=== PATIENT | male | born 1945 | race Caucasian/White ===

== ENCOUNTER 2017-08-23 11:29 | Outpatient (CLI) | payer MEDICARE, BC, SELFPAY ==
[2017-08-23] VITALS (11 sets, daily range): BP systolic 126–148; BP diastolic 62–87; PULSE 60–73; RESP 16–18; TEMP 36.4; O2SAT 95–100
--- NOTE | 2017-08-23 11:30 | DI.RAD.S_ITS ---
PROCEDURE: PAIN L/SI FACET INJ/BLK 1STL INDICATIONS: Post Lami Syndrome FINDINGS: Fluoroscopic spot filming was performed to verify placement of spinal needles at the bilateral L2-L3 and L3-4 level(s), as labeled on the films. Appropriate location(s) of the needle tip(s) was confirmed by injection of iodinated contrast. Dictated by: Avinash Fair M.D. on 08/23/2017 at 17:17 Approved by: Avinash Fair M.D. on 08/23/2017 at 17:19
--- NOTE | 2017-08-23 12:05 | PM.PROC.1 ---
Procedures Date/Time Date of procedure: 08/23/17 Time of procedure: 12:05 General Procedure description: PREOP DIAGNOSIS 1. FACET ARTHROPATHY, 2. AXIAL LBP, 3. MULTILEVEL DDD, POST OP DIAGNOSIS 1. FACET ARTHROPATHY, 2. AXIAL LBP, 3. MULTILEVEL DDD, PROCEDURES 1. FLUORSCOPICALLY GUIDED CONTRAST CONTROLLED FACET JOINT INJECTIONS BILATERAL L2/3, L3/4 SURGEON: Jonas Lundy DO INDICATIONS: Erics ireferred by is referred for treatment of Axial LBP FINDINGS Multilevel Facet Arthropathy with Clinically significant axial LBP DESCRIPTION OF PROCEDURE Fluoroscopically guided, contrast-controlled bilateral L2/3, L3/4 facet joint injections. Following denial of allergy and review of potential side effects and complications, including, but not necessarily limited to, infection, allergic reaction, local tissue breakdown, stroke, temporary or permanent nerve injury, paralysis, and possible , the patient indicated that the patient understood and agreed to proceed. An informed consent document was signed by the patient, witnessed by a nurse, and placed in the patient's chart. Additionally, other treatment options including medications, modalities, and physical therapy were reviewed with the patient. Per the patient request, IV conscious sedation was administered via 3mg of Versed to patient comfort. The patient's vital signs were monitored throughout the procedure by both the nurse and the physician without significant fluctuation. The patient remained conversant throughout the procedure. In the prone position, following sterile prep and drape of the lumbar region, the posterior aspect of the L2/3, L3/4 facet joints were identified fluoroscopically. The skin was anesthetized via a 25-gauge 1.5-inch needle with 1% lidocaine solution into the corresponding facet joints. At this point, a 22-gauge 3.5-inch spinal needle was atraumatically introduced and advanced under fluoroscopic guidance into the corresponding facet joints. Following negative aspiration, injections of approximately 0.2-cc of Isovue 200 confirmed interarticular placement without vascular uptake. The identical procedure was then performed at the L2/3, L3/4 facet joints on the left. Radiological data, including multiple fluoroscopic views of the lumbosacral spine, reveal a spinal needle at the L2/3, L3/4 facet joints bilaterally. Subsequent views show flow of contrast material both superiorly and inferiorly within the joint space without vascular or intrathecal uptake. At this point, a total of 0.5 cc including a mixture of 0.25cc Marcaine and 0.25cc betamethasone was injected without complication into each of the corresponding facet joints. The patient was then transferred to the recovery area where they were observed for an appropriate period of time after the injection. The patient reported a VAS score of 7 prior to the procedure and a post-procedure VAS of 0. Total Fluoroscopy Time: 26 seconds Total Conscious Sedation Time: 24min POST OP INSTRUCTIONS The patient was provided a Pain Log to continue to record their response to the target-specific procedure prior to follow-up visit with their referring physician. Additionally, specific post-injection care instructions and a contact number to our office were provided if concerns arise regarding possible complications associated with the procedure are suspected. Jonas Lundy DO Complications: none
[2017-08-23] MEDS: MIDAZOLAM 5 MG/5 ML VIAL IV (12:16)
[2017-08-23] MEDS: LIDOCAINE 1% 20 ML INJ 10 ML INJ (12:23)
[2017-08-23] MEDS: BETAMETHASONE 30 MG/5 ML MDV 12 MG INJ (12:23)
[2017-08-23] MEDS: BUPIVACAINE 0.25% (PF) 30 ML VIAL 5 ML INJ (12:23)
== END 2017-08-23 13:01 ==
PROVIDERS: PCP Family Medicine; Visit Provider Physical Medicine & Rehabilitation
DX: M47.26 Other spondylosis with radiculopathy, lumbar region (principal); M51.36 Other intervertebral disc degeneration, lumbar region; M96.1 Postlaminectomy syndrome, not elsewhere classified
CPT/HCPCS: 64493; 64494; 99152; J0702; J2250

== ENCOUNTER 2017-10-19 13:04 | Outpatient (CLI) | payer MEDICARE, BC, SELFPAY ==
[2017-10-19] VITALS (10 sets, daily range): BP systolic 119–142; BP diastolic 69–92; PULSE 59–65; RESP 16–18; TEMP 36.1; O2SAT 96–100
--- NOTE | 2017-10-19 13:08 | DI.RAD.S_ITS ---
PROCEDURE: PAIN L/SI FACET INJ/BLK 1STL INDICATIONS: L3-L4-L5 MEDIAL BRANCH BLOCK BILATERAL FINDINGS: Fluoroscopic spot filming was performed to verify placement of spinal needles at the L3, L4 and L5 level(s), as labeled on the films. Appropriate location(s) of the needle tip(s) was confirmed by injection of iodinated contrast. IMPRESSION: Intraoperative imaging for needle injections at 3 levels in the lumbar spine Dictated by: Javi Hathaway M.D. on 10/19/2017 at 16:49 Approved by: Javi Hathaway M.D. on 10/19/2017 at 16:50
[2017-10-19] MEDS: MIDAZOLAM 5 MG/5 ML VIAL IV (14:07)
--- NOTE | 2017-10-19 14:12 | P.PCN_ITS ---
Procedures Date/Time Date of procedure: 10/19/17 Time of procedure: 14:08 General Procedure description: POST OP DIAGNOSIS 1. FACET ARTHROPATHY PROCEDURES 1. BILATERAL L2, L3 AND L4 MB BLOCKS PHYSICIAN: Jonas Lundy DO INDICATIONS [place] is referred by Dr. Hpokins for treatment of Bilateral Axial LBP. DESCRIPTION OF PROCEDURE Fluoroscopically guided, contrast-controlled bilateral L2, L3 AND L4 medial branch blocks with 0.5cc of 0.5% Marcaine. Following denial of allergy and review of potential side effects and complications, including, but not necessarily limited to, infection, allergic reaction, local tissue breakdown, nerve injury, paralysis, stroke and possible , the patient indicated that the patient understood and agreed to proceed. An informed consent document was signed by the patient, witnessed by a nurse, and placed in the patient's chart. After review of previous anaesthesic history and IV conscious sedation the patient was deemed safe to proceed with todays procedure with IV conscious sedation as ASA class II designation. Safety time-out was performed to confirm patient ID, procedure to be performed and site of procedure. IV sedation was accomplished with a combination of 3mg of Versed was administered by the RN after DO order, titrated to patient comfort during the course of the procedure while the patient remained responsive to all verbal commands In the prone position, following sterile prep and drape of the lumbar region, the right L2, L3 AND L4 anatomical location of the medial branch of the dorsal ramus was identified fluoroscopically. Subsequently an anesthetic skin wheal using 1% lidocaine solution was initiated at each of the anatomical spots. Subsequently then a 22-gauge 3.5-inch spinal needle was atraumatically introduced and advanced under fluoroscopic guidance at each of the corresponding sites at the right L2, L3 AND L4 MB. After negative aspiration, 0.2 cc of Isovue 200 was injected, confirming placement without vascular or intrathecal uptake. Subsequently then 0.5 cc of 0.5% Marcaine solution was injected at each of the corresponding sites at the Right L2, L3 AND L4 medial branch locations. The identical procedure was replicated on the left. The patient tolerated the procedure well without signs or symptoms of complications. Post-procedure, the patient was monitored initiating provocative activities to measure the amount of relief from block of the facetogenic pain. The patient reported a VAS of 7 prior to the procedure and a post-procedure VAS of 1. It has been a pleasure to assist in the diagnostic and therapeutic care of your patient. Total Fluoroscopy Time: 24.8 seconds Total Conscious Sedation Time: 24min POST OP INSTRUCTIONS The patient was provided with a Pain Log to complete over the next several hours and subsequent days prior to the patient's follow up with the ordering physician. 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 The patient is aware , was provided, once again, with a Pain Log and will follow up with the referring physician for review and clinical correlation Jonas Lundy DO Complications: none
[2017-10-19] MEDS: LIDOCAINE 1% 20 ML INJ 10 ML INJ (14:26)
[2017-10-19] MEDS: IOPAMIDOL 15 ML VIAL 3 ML INJ (14:26)
[2017-10-19] MEDS: BETAMETHASONE 30 MG/5 ML MDV 12 MG INJ (14:26)
[2017-10-19] MEDS: BUPIVACAINE 0.5% (PF) VIAL 5 ML INJ (14:26)
== END 2017-10-19 15:15 ==
LOC: RAD 13:07
PROVIDERS: PCP Family Medicine; Visit Provider Physical Medicine & Rehabilitation
DX: M47.816 Spondylosis without myelopathy or radiculopathy, lumbar region (principal); M96.1 Postlaminectomy syndrome, not elsewhere classified
CPT/HCPCS: 64493; 64495; 99152; J0702; J2250

== ENCOUNTER 2017-11-22 10:48 | Outpatient (CLI) | payer MEDICARE, BC, SELFPAY ==
[2017-11-22] VITALS (20 sets, daily range): BP systolic 122–168; BP diastolic 67–102; PULSE 59–68; RESP 16–20; TEMP 36.2; O2SAT 96–100
--- NOTE | 2017-11-22 10:50 | DI.RAD.S_ITS ---
PROCEDURE: PAIN L/S MED/LAT N RFA BILAT INDICATIONS: Lumbosacral spondylosis with facet arthropathy FINDINGS: Fluoroscopic spot filming was performed to verify placement of spinal needles at the right and left-sided L2, L3, L4 level(s), as labeled on the films. Appropriate location(s) of the needle tip(s) was confirmed by injection of iodinated contrast. IMPRESSION: Successful right and left L2, L3, and L4 needle tip localization for bilateral rhizotomy at these levels. Dictated by: Geovani Garcia M.D. on 11/22/2017 at 16:13 Approved by: Geovani Garcia M.D. on 11/22/2017 at 16:14
--- NOTE | 2017-11-22 11:11 | P.PCN_ITS ---
Procedures Date/Time Date of procedure: 11/22/17 Time of procedure: 11:07 General Procedure description: PREOP DIAGNOSIS 1. RECALCITRANT FACET ARTHROPATHY, POST OP DIAGNOSIS 1. RECALCITRANT FACET ARTHROPATHY PROCEDURES 1. BILATERAL L2, L3 AND L4 MEDIAL BRANCH RADIOFREQUENCY NEUROTOMY PHYSICIAN: Jonas Lundy DO INDICATIONS: [place] is referred by for treatment of facet arthropathy. DESCRIPTION OF PROCEDURE Right L2, L3 and L4 medial branch radiofrequency neurotomy under fluoroscopy with conscious sedation. The patient is well known to this clinic having undergone previous facet injections with good but temporary relief. The patient has experienced appropriate, concordant relief with previous facet and median branch blocks but the patient's pain has been recalcitrant to further conservative measures. Therefore, based upon the patient's relief and persistent symptoms, the patient is considered an appropriate candidate for facet rhizotomy. All of the patient' s questions regarding the risks versus benefits of the procedure, including, but not limited to, bleeding, infection, temporary as well as lasting nerve injury, paralysis, stroke, and , as well treatment alternatives were answered to satisfaction. After obtaining informed consent, denial of pertinent drug allergies, as well as being made aware of the potential risks of bleeding, infection, spinal cord trauma, paralysis, temporary and permanent nerve damage, seizure, stroke, and possible , the patient was brought to the fluoroscopy suite and positioned prone on the fluoroscopy table. The lumbar region was prepped with Betadine and covered with a fenestrated drape in the usual sterile fashion. Appropriate monitors applied including pulse oximeter, pulse, and blood pressure for regular monitoring throughout the procedure. After review of previous anaesthesic history and IV conscious sedation the patient was deemed safe to proceed with todays procedure with IV conscious sedation as ASA class II designation. Safety time-out was performed to confirm patient ID, procedure to be performed and site of procedure. IV sedation was accomplished with a combination of 4mg of Versed and 50mcg of Fentanyl administered by the RN after DO order, titrated to patient comfort during the course of the procedure while the patient remained responsive to all verbal commands. After local infiltration using 1% lidocaine, under fluoroscopic guidance, a 10- cm RF insulated needle with a 10cm was directed to the right L2 medial branch nerve placement was confirmed with sensory stimulation at 50 Hz, with motor stimulation of .5v on the right which produced local stimulation without radicular component. The stimulation was then increased to 1.5v with, once again, only local multifidus stimulation without radicular component. This was then followed by two discreet lesions performed at 80 degrees Celsius for 90 seconds each. The needle was then removed and the identical procedure was performed along the length of the right L3 medial branch with motor stimulation at .7v on the right. The identical procedure was once again performed along the length of the right L4 medial branch with motor stimulation of .5v on the right. The identical procedure was repeated on the left. The patient tolerated the procedure well without signs or symptoms of complications prior to transfer to the recovery area continued monitoring without incident. The patient was then transferred to the recovery area where they were observed for an appropriate period of time after the injection. The patient reported a VAS score of 9 prior to the procedure and a post-procedure VAS of 0. Total Fluoroscopy Time: 22.7 seconds Total Conscious Sedation Time: 47min POST OP INSTRUCTIONS The patient was provided a Pain Log to continue to record the patient's response to the target-specific procedure prior to the patient's follow-up visit with the referring physician. Additionally, specific post-injection care instructions and a contact number to our office were provided if concerns arise regarding possible complications associated with the procedure are suspected. Jonas Lundy DO Complications: none
[2017-11-22] MEDS: MIDAZOLAM 5 MG/5 ML VIAL IV (11:14)
[2017-11-22] MEDS: IOPAMIDOL 15 ML VIAL 3 ML INJ (11:44)
[2017-11-22] MEDS: BUPIVACAINE 0.5% (PF) VIAL 5 ML INJ (11:44)
[2017-11-22] MEDS: LIDOCAINE 1% 20 ML INJ INJ (11:44)
--- NOTE | 2017-11-23 14:13 | PC.NURSE ---
FOLLOW UP PHONE CALL MADE. LEFT MSG WITH OFFICE #.
== END 2017-11-22 12:41 ==
LOC: RAD 10:49
PROVIDERS: PCP Family Medicine; Visit Provider Physical Medicine & Rehabilitation
DX: M47.816 Spondylosis without myelopathy or radiculopathy, lumbar region (principal); M47.817 Spondylosis without myelopathy or radiculopathy, lumbosacral region; M96.1 Postlaminectomy syndrome, not elsewhere classified
CPT/HCPCS: 64635; 64636; 99152; 99153; J2250

== ENCOUNTER 2018-02-08 08:44 | Outpatient (CLI) | payer MEDICARE, BC, SELFPAY ==
[2018-02-08] VITALS (7 sets, daily range): BP systolic 105–127; BP diastolic 58–77; PULSE 60–65; RESP 16–18; TEMP 36.6; O2SAT 94–98
--- NOTE | 2018-02-08 08:46 | DI.RAD.S_ITS ---
PROCEDURE: PAIN L/S TRANSFORAMINAL INJECT INDICATIONS: SPINAL STENOSIS FINDINGS: Fluoroscopic spot filming was performed to verify placement of spinal needles at the L3-L4 level(s), as labeled on the films. Appropriate location(s) of the needle tip(s) was confirmed by injection of iodinated contrast. Dictated by: Avinash Fair M.D. on 02/08/2018 at 14:57 Approved by: Avinash Fair M.D. on 02/08/2018 at 14:57
[2018-02-08] MEDS: MIDAZOLAM 5 MG/5 ML VIAL IV (10:01)
[2018-02-08] MEDS: IOPAMIDOL 15 ML VIAL 3 ML INJ (10:06)
[2018-02-08] MEDS: DEXAMETHASONE 10 MG/ML VIAL 20 MG INJ (10:06)
[2018-02-08] MEDS: BUPIVACAINE 0.25% (PF) VIAL 2 ML INJ (10:06)
--- NOTE | 2018-02-08 10:17 | PC.NURSE ---
assisting pt off proc table and transporting to post proc area in stable condition
--- NOTE | 2018-02-08 10:20 | P.PCN_ITS ---
Procedures Date/Time Date of procedure: 02/08/18 Time of procedure: 10:18 General Procedure description: PROVIDER: Jonas Lundy DO Operative Note PREOP DIAGNOSIS 1. FORAMINAL STENOSIS WITH LE SYMPTOMS, POST OP DIAGNOSIS 1. FORAMINAL STENOSIS WITH LE SYMPTOMS, PROCEDURES 1. FLUOROSCOPICALLY GUIDED CONTRAST CONTROLLED TRANSFORAMINAL EPIDURAL STEROID INJECTION - RIGHT L3/4 TFESI SURGEON: Jonas Lundy DO INDICATIONS [place] is referred by Dr. Blackwood for treatment of HNP with right LE Symptoms FINDINGS Foraminal Nerve Root Compression secondary to disc disease and facet hypertrophy DESCRIPTION OF PROCEDURE Following denial of allergy and review of potential side effects and complications, including, but not necessarily limited to, infection, allergic reaction, local tissue breakdown, stroke, temporary or permanent nerve injury, paralysis, and possible , the patient indicated that the patient understood and agreed to proceed. An informed consent document was signed by the patient, witnessed by a nurse, and placed in the patient's chart. Additionally, other treatment options including medications, modalities, and physical therapy were reviewed with the patient. After review of previous anaesthesic history and IV conscious sedation the patient was deemed safe to proceed with todays procedure with IV conscious sedation as ASA class II designation. Safety time-out was performed to confirm patient ID, procedure to be performed and site of procedure. IV sedation was accomplished with a combination of 3mg was administered by the RN after DO order , titrated to patient comfort during the course of the procedure while the patient remained responsive to all verbal commands In the prone position following sterile prep and drape of the lumbar region, the right L3/4 posterior neuroforamen was identified fluoroscopically. The skin was anesthetized via a 25-gauge 1.5-inch needle with 1% lidocaine solution. At this point, a 25-gauge 3.5-inch spinal needle was atraumatically introduced and advanced under fluoroscopic guidance through the posterior right L3/4 neuroforamen to approximately the anterior aspect of the canal. Depth was confirmed on lateral view. Following negative aspiration, injection of approximately 1.5 cc of Isovue 200 under live fluoroscopy in the AP view confirmed excellent flow along the nerve root, into the epidural space without vascular or intrathecal uptake observed Radiological data, including multiple fluoroscopic views of the lumbosacral spine, reveal a spinal needle at the right L3/4 posterior neuroforamen. Subsequent views show flow of contrast material flowing superiorly and inferiorly along the nerve root confirming epidural flow. Subsequently, a test dose of 1.5 cc of 1% lidocaine solution was administered and patient was observed for two minutes for signs or symptoms of complications , including abdominal pain, shortness of breath, bilateral upper or lower extremity weakness, nausea and vomiting, prior to steroid injection. At this point, a total of 3 cc or 20 mg of dexamethasone and 80mg Depo medrol was injected without incident. The patient tolerated the procedure well without signs or symptoms of complications prior to transfer to the recovery area continued monitoring without incident. The patient was then transferred to the recovery area where they were observed for an appropriate time after the injection. The patient reported a VAS score of 7 prior to the procedure and a post-procedure VAS of 0. Total Fluoroscopy Time: 24.2 seconds Total Conscious Sedation Time: 24min POST OP INSTRUCTIONS The patient was provided a Pain Log to continue to record their response to the target-specific procedure prior to follow-up visit with their referring physician. Additionally, specific post-injection care instructions and a contact number to our office were provided if concerns arise regarding possible complications associated with the procedure are suspected. Jonas Lundy DO Complications: none
[2018-02-08] MEDS: methylPREDNISolone acetate 80 MG/ML VIAL INJ (10:27)
== END 2018-02-08 10:39 | disposition home or self-care (01) ==
LOC: RAD 08:45
PROVIDERS: PCP Family Medicine; Visit Provider Physical Medicine & Rehabilitation
DX: M48.061 Spinal stenosis, lumbar region without neurogenic claudication (principal); M51.16 Intervertebral disc disorders with radiculopathy, lumbar region; M47.817 Spondylosis without myelopathy or radiculopathy, lumbosacral region; M96.1 Postlaminectomy syndrome, not elsewhere classified; M48.07 Spinal stenosis, lumbosacral region
CPT/HCPCS: 64483; 99152; J1040; J1100; J2250

== ENCOUNTER 2018-08-15 12:10 | Outpatient (CLI) | payer MEDICARE, BC, SELFPAY ==
[2018-08-15] VITALS (9 sets, daily range): BP systolic 118–145; BP diastolic 76–93; PULSE 60–61; RESP 16–18; TEMP 36.7; O2SAT 96–98
--- NOTE | 2018-08-15 12:12 | DI.RAD.S_ITS ---
PROCEDURE: PAIN L/S TRANSFORAMINAL INJECT INDICATIONS: SPINAL STENOSIS FINDINGS: Fluoroscopic spot filming was performed to verify placement of spinal needles at the L3-L4 level(s), as labeled on the films. Appropriate location(s) of the needle tip(s) was confirmed by injection of iodinated contrast. Dictated by: Avinash Fair M.D. on 08/15/2018 at 14:22 Approved by: Avinash Fair M.D. on 08/15/2018 at 14:22
[2018-08-15] MEDS: fentaNYL 100 MCG/2 ML INJ 50 MCG IV (13:21)
[2018-08-15] MEDS: MIDAZOLAM 5 MG/5 ML VIAL IV (13:21)
[2018-08-15] MEDS: BETAMETHASONE 30 MG/5 ML MDV 6 MG INJ (13:33)
[2018-08-15] MEDS: BUPIVACAINE 0.25% (PF) VIAL 2 ML INJ (13:33)
[2018-08-15] MEDS: DEXAMETHASONE 10 MG/ML VIAL 20 MG INJ (13:33)
[2018-08-15] MEDS: IOPAMIDOL 15 ML VIAL 3 ML INJ (13:33)
--- NOTE | 2018-08-15 13:43 | PC.NURSE ---
ASSISTING PT OFF TABLE AND TRANSPORTING TO POST PROC AREA IN STABLE CONDITION
--- NOTE | 2018-08-15 13:51 | P.PCN_ITS ---
Procedures Date/Time Date of procedure: 08/15/18 Time of procedure: 13:50 General Procedure description: PROVIDER: Jonas Lundy DO Operative Note PREOP DIAGNOSIS 1. FORAMINAL STENOSIS WITH LE SYMPTOMS, POST OP DIAGNOSIS 1. FORAMINAL STENOSIS WITH LE SYMPTOMS, PROCEDURES 1. FLUOROSCOPICALLY GUIDED CONTRAST CONTROLLED TRANSFORAMINAL EPIDURAL STEROID INJECTION - RIGHT L3/4 TFESI SURGEON: Jonas Lundy DO INDICATIONS [place] is referred by Dr. Blackwood for treatment of Foraminal Stenosis with right LE Symptoms FINDINGS Foraminal Nerve Root Compression secondary to disc disease and facet hypertrophy DESCRIPTION OF PROCEDURE Following denial of allergy and review of potential side effects and complications, including, but not necessarily limited to, infection, allergic reaction, local tissue breakdown, stroke, temporary or permanent nerve injury, paralysis, and possible , the patient indicated that the patient understood and agreed to proceed. An informed consent document was signed by the patient, witnessed by a nurse, and placed in the patient's chart. Additionally, other treatment options including medications, modalities, and physical therapy were reviewed with the patient. After review of previous anaesthesic history and IV conscious sedation the patient was deemed safe to proceed with todays procedure with IV conscious sedation as ASA class II designation. Safety time-out was performed to confirm patient ID, procedure to be performed and site of procedure. IV sedation was accomplished with a combination of 3mg of Versed and 50mcg of Fentanyl was administered by the RN after DO order, titrated to patient comfort during the course of the procedure while the patient remained responsive to all verbal commands In the prone position following sterile prep and drape of the lumbar region, the right L3/4 posterior neuroforamen was identified fluoroscopically. The skin was anesthetized via a 25-gauge 1.5-inch needle with 1% lidocaine solution. At this point, a 25-gauge 3.5-inch spinal needle was atraumatically introduced and advanced under fluoroscopic guidance through the posterior right L3/4 neuroforamen to approximately the anterior aspect of the canal. Depth was confirmed on lateral view. Following negative aspiration, injection of approximately 1.5 cc of Isovue 200 under live fluoroscopy in the AP view confirmed excellent flow along the nerve root, into the epidural space without vascular or intrathecal uptake observed Radiological data, including multiple fluoroscopic views of the lumbosacral spine, reveal a spinal needle at the right L3/4 posterior neuroforamen. Sub sequent views show flow of contrast material flowing superiorly and inferiorly along the nerve root confirming epidural flow. Subsequently, a test dose of 1.5 cc of 1% lidocaine solution was administered and patient was observed for two minutes for signs or symptoms of complications, including abdominal pain, shortness of breath, bilateral upper or lower extremity weakness, nausea and vomiting, prior to steroid injection. At this point, a total of 2cc or 20mg of dexamethasone was injected without incident. The patient tolerated the procedure well without signs or symptoms of complications prior to transfer to the recovery area continued monitoring without incident. The patient was then transferred to the recovery area where they were observed for an appropriate time after the injection. The patient reported a VAS score of 7 prior to the procedure and a post-procedure VAS of 0. Total Fluoroscopy Time: 24.2 seconds Total Conscious Sedation Time: 24min POST OP INSTRUCTIONS The patient was provided a Pain Log to continue to record their response to the target-specific procedure prior to follow-up visit with their referring physician. Additionally, specific post-injection care instructions and a contact number to our office were provided if concerns arise regarding possible complications associated with the procedure are suspected. Jonas Lundy DO
--- NOTE | 2018-08-15 14:41 | PC.NURSE ---
Pt returned from procedure via wheelchair awake and alert, able to get from w/c to chair with standby assist. Resumed monitoring from Judy BUTCHER.
== END 2018-08-15 14:24 ==
LOC: RAD 12:11
PROVIDERS: PCP Family Medicine; Visit Provider Physical Medicine & Rehabilitation
DX: M48.061 Spinal stenosis, lumbar region without neurogenic claudication (principal); M51.16 Intervertebral disc disorders with radiculopathy, lumbar region
CPT/HCPCS: 64483; 99152; J0702; J1100; J2250; J3010

== ENCOUNTER → 2018-09-06 14:05 | Outpatient (CLI) | payer MEDICARE, BC, SELFPAY ==
--- NOTE | 2018-09-06 14:10 | DI.RAD.S_ITS ---
PROCEDURE: XR HIP W PEL IF DONE LT MIN 4V INDICATIONS: bilateral hip pain TECHNIQUE: AP pelvis with lateral view(s) of the left and right hip(s). COMPARISON: None. FINDINGS: Bones: No fractures or dislocations. Pelvic ring appears intact. No suspicious bony lesions. There is right hip arthroplasty with prosthesis in anatomic alignment. Moderate left hip degeneration is present with joint space narrowing and periarticular osteophytes. Soft tissues: The visualized bowel gas pattern is normal. No suspicious soft tissue calcifications. IMPRESSION: 1. 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 2. Right hip arthroplasty. Dictated by: Karlie Henriquez M.D. on 09/06/2018 at 17:06 Approved by: Karlie Henriquez M.D. on 09/06/2018 at 17:08
== END ==
PROVIDERS: PCP Family Medicine; Visit Provider Registered Nurse
DX: M25.551 Pain in right hip (principal); M25.552 Pain in left hip; M16.12 Unilateral primary osteoarthritis, left hip; M96.1 Postlaminectomy syndrome, not elsewhere classified; M47.817 Spondylosis without myelopathy or radiculopathy, lumbosacral region; M47.816 Spondylosis without myelopathy or radiculopathy, lumbar region; M46.96 Unspecified inflammatory spondylopathy, lumbar region; Z96.641 Presence of right artificial hip joint
CPT/HCPCS: 73522; 99214

== ENCOUNTER 2018-09-26 11:52 | Outpatient (CLI) | payer MEDICARE, BC, SELFPAY ==
[2018-09-26] VITALS (9 sets, daily range): BP systolic 112–138; BP diastolic 70–89; PULSE 53–62; RESP 16–18; TEMP 36.7; O2SAT 96–97
--- NOTE | 2018-09-26 11:53 | DI.RAD.S_ITS ---
PROCEDURE: PAIN L/SI FACET INJ/BLK 1STL INDICATIONS: 14330, [id number] Right L4, L5, S1 Medial Branch Block FINDINGS: Fluoroscopic spot filming was performed to verify placement of spinal needles at the L4, L5, S1 level. Appropriate location(s) of the needle tip(s) was confirmed by injection of iodinated contrast. Dictated by: Avinash Fair M.D. on 09/26/2018 at 15:02 Approved by: Avinash Fair M.D. on 09/26/2018 at 15:03
[2018-09-26] MEDS: MIDAZOLAM 5 MG/5 ML VIAL IV (12:49)
[2018-09-26] MEDS: fentaNYL 100 MCG/2 ML INJ 50 MCG IV (12:50)
[2018-09-26] MEDS: BUPIVACAINE 0.5% (PF) VIAL 2 ML INJ (12:57)
[2018-09-26] MEDS: BETAMETHASONE 30 MG/5 ML MDV 12 MG INJ (12:57)
[2018-09-26] MEDS: IOPAMIDOL 15 ML VIAL 3 ML INJ (12:58)
[2018-09-26] MEDS: LIDOCAINE 1% 20 ML INJ 10 ML INJ (12:58)
--- NOTE | 2018-09-26 12:59 | PC.NURSE ---
ASSISTING PT OFF TABLE AND TRANSPORTING TO POST PROC AREA IN STABLE CONDITION
--- NOTE | 2018-09-26 13:06 | PC.NURSE ---
Pt returned from procedure awake and alert via wheelchair, able to transfer from w/c to chair with standby assist. Resumed monitoring from Judy BUTCHER.
--- NOTE | 2018-09-26 13:10 | P.PCN_ITS ---
Procedures Date/Time Date of procedure: 09/26/18 Time of procedure: 13:09 General Procedure description: POST OP DIAGNOSIS 1. FACET ARTHROPATHY PROCEDURES 1. Right L4, L5 and S1 MB BLOCKS PHYSICIAN: Jonas Lundy DO INDICATIONS [place] is referred by Dr. Blackwood for treatment of Right Axial LBP. DESCRIPTION OF PROCEDURE Fluoroscopically guided, contrast-controlled right L4, L5 and S1 medial branch blocks with 0.5cc of 0.5% Marcaine. Following review of allergy and review of potential side effects and complications, including, but not necessarily limited to, infection, allergic reaction, local tissue breakdown, nerve injury, paralysis, stroke and possible , the patient indicated that the patient understood and agreed to proceed. An informed consent document was signed by the patient, witnessed by a nurse, and placed in the patient's chart. After review of previous anaesthesic history and IV conscious sedation the patient was deemed safe to proceed with todays procedure with IV conscious sedation as ASA class II designation. Safety time-out was performed to confirm patient ID, procedure to be performed and site of procedure. IV sedation was accomplished with a combination of 2mg of Versed and 50mcg of Fentanyl was administered by the RN after DO order, titrated to patient comfort during the course of the procedure while the patient remained responsive to all verbal commands In the prone position, following sterile prep and drape of the lumbar region, the right L4, L5 and S1 anatomical location of the medial branch of the dorsal ramus was identified fluoroscopically. Subsequently an anesthetic skin wheal using 1% lidocaine solution was initiated at each of the anatomical spots. Subsequently then a 22-gauge 3.5-inch spinal needle was atraumatically introduced and advanced under fluoroscopic guidance at each of the corresponding sites at the right L4, L5 and S1 MB. After negative aspiration, 0.2 cc of Isovue 200 was injected, confirming placement without vascular or intrathecal uptake. Subsequently then 0.5 cc of 0.5% Marcaine solution was injected at each of the corresponding sites at the right L4, L5 and S1 medial branch locations. The patient tolerated the procedure well without signs or symptoms of complications. The procedure tolerated the procedure well without signs or symptoms of complications prior to transfer to the recovery area continued monitoring without incident. Post-procedure, the patient was monitored initiating provocative activities to measure the amount of relief from block of the facetogenic pain. The patient reported a VAS of 7 prior to the procedure and a post-procedure VAS of 1. It has been a pleasure to assist in the diagnostic and therapeutic care of your patient. Total Fluoroscopy Time: 24.8 seconds Total Conscious Sedation Time: 24min POST OP INSTRUCTIONS The patient was provided with a Pain Log to complete over the next several hours and subsequent days prior to the patient's follow up with the ordering physician. If the patient has heat treat supervisor relief to the solution applied, then they may be a candidate for medial branch rhizotomy. The patient is aware, was provided, once again, with a Pain Log and will follow up with the referring physician for review and clinical correlation Jonas Lundy DO Complications: none
== END 2018-09-26 13:30 ==
LOC: RAD 11:52
PROVIDERS: PCP Family Medicine; Visit Provider Physical Medicine & Rehabilitation
DX: M47.817 Spondylosis without myelopathy or radiculopathy, lumbosacral region (principal); M47.816 Spondylosis without myelopathy or radiculopathy, lumbar region
CPT/HCPCS: 64493; 64494; 64495; 99152; J0702; J2250; J3010

== ENCOUNTER → 2019-10-23 11:17 | Outpatient (CLI) | payer MEDICARE, BC, SELFPAY ==
--- NOTE | 2019-10-23 11:19 | DI.RAD.S_ITS ---
PROCEDURE: XR LUMBAR SPINE MIN 4V INDICATIONS: Scoliosis TECHNIQUE: 5 views of the lumbar spine were acquired. COMPARISON: [facility], CR, SPINE LUMB 2 OR 3VW, 07/09/2014, 15:50. [facility], CT, L-SPINE WITHOUT CONTRAST, 12/02/2016, 10:06. [facility], CT, CT LUMBAR SPINE WO CON, 10/23/2019, 11:30. FINDINGS: Bones: 5 [id number] vertebrae are present. There is grade 1 retrolisthesis of L1 on L2, and grade 1 anterolisthesis of L2 on L3 and L3 on L4. No vertebral body compression fractures. No suspicious bony lesions. There is degenerative disc disease, severe at L1 and L2, moderate at L2-L3, L3-L4 , L4-L5 and L5-S1. Severe facet arthropathy at L2-L3, L3-L4 and L4-L5, moderate facet arthropathy at L1-L2 and L5-S1. 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 Moderate degenerative joint disease in the left hip. Soft tissues: Overlying bowel gas pattern is normal. No suspicious soft tissue calcifications. Oblique images: No pars defects. IMPRESSION: Severe degenerative disc and facet disease in lumbar spine as described. Dictated by: Karlie Henriquez M.D. on 10/23/2019 at 14:49 Approved by: Karlie Henriquez M.D. on 10/23/2019 at 15:00
--- NOTE | 2019-10-23 11:19 | DI.CT.S_ITS ---
PROCEDURE: CT LUMBAR SPINE WO CON INDICATIONS: Scoliosis. Low back pain TECHNIQUE: Noncontrast 3 mm thick sections acquired from the T12 level to the sacrum. Sagittal and coronal reformats were constructed. For radiation dose reduction, the following was used: automated exposure control. COMPARISON: [facility], CT, L-SPINE WITHOUT CONTRAST, 12/02/2016, 10:06. [facility], CR, XR LUMBAR SPINE MIN 4V, 10/23/2019, 11:40. FINDINGS: Image quality: Excellent. Bones: There is mild L2-L3 anterolisthesis. There is trace L3-L4 anterolisthesis. There is trace L1-L2 retrolisthesis. Bones are diffusely osteopenic. No acute vertebral body compression fractures. No suspicious lytic or blastic bony lesions. Central spinal caliber is of normal overall caliber. No pars defects. T12-L1: Slight loss of disc height. Mild narrowing of the central canal. Mild bilateral neural foraminal narrowing. No neural compression. L1-L2: Loss of disc height. Vacuum disc phenomenon. Moderate, diffuse disc bulge. Enhl-zu-gnhnncuh facet and moderate ligamentum flavum hypertrophy. Moderate to severe narrowing of the central canal. Moderate right and severe left neural foraminal narrowing with compression of the exiting left L1 nerve root. L2-L3: Mild loss of disc height. Vacuum disc phenomenon. Moderate, diffuse disc bulge. Severe bilateral facet hypertrophy. Severe narrowing of the central canal with compression of the nerve roots of the cauda equina. Moderate bilateral neural foraminal narrowing. L3-L4: Loss of disc height. Mild, diffuse disc bulge. Severe bilateral facet hypertrophy. Moderate to severe narrowing of the central canal. Moderate to severe bilateral neural foraminal narrowing with slight compression of the exiting L3 nerve roots. L4-L5: Loss of disc height. Mild, diffuse disc bulge. Moderate bilateral facet hypertrophy. Mild narrowing of the central canal. Severe bilateral neural foraminal narrowing with compression of the exiting L4 nerve roots. L5-S1: Loss of disc height. Mild, diffuse disc bulge. Mild bilateral facet hypertrophy. No central stenosis. Mild bilateral neural foraminal narrowing. No neural compression. Soft tissues: No retroperitoneal masses or hematomas. Visualized aorta is normal in caliber. IMPRESSION: 1. Multilevel degenerative disc disease. 2. Multilevel facet arthropathy. 3. Severe L2-L3 central canal narrowing with compression of the nerve roots of the cauda equina. Moderate to severe L1-L2 and L3-L4 central canal narrowing. 4. Severe left L1-L2 neural foraminal narrowing with compression of the exiting left L1 nerve root. Moderate to severe bilateral L3-L4 neural foraminal narrowing with slight compression of the exiting L3 nerve roots. Severe bilateral L4-L5 neural foraminal narrowing with compression of the exiting L4 nerve roots. Dictated by: Elena Webster MD, PhD on 10/23/2019 at 15:58 Approved by: Elena Webster MD, PhD on 10/23/2019 at 16:07
== END ==
PROVIDERS: PCP Family Medicine; Referring Provider Physical Medicine & Rehabilitation; Visit Provider Physical Medicine & Rehabilitation
DX: M54.5 Low back pain (principal); M51.36 Other intervertebral disc degeneration, lumbar region; M51.37 Other intervertebral disc degeneration, lumbosacral region; M48.061 Spinal stenosis, lumbar region without neurogenic claudication; M47.816 Spondylosis without myelopathy or radiculopathy, lumbar region; M47.817 Spondylosis without myelopathy or radiculopathy, lumbosacral region; M41.52 Other secondary scoliosis, cervical region; M46.96 Unspecified inflammatory spondylopathy, lumbar region
CPT/HCPCS: 72110; 72131

== ENCOUNTER → 2019-11-12 11:24 | Outpatient (CLI) | payer MEDICARE, BC, SELFPAY ==
[2019-11-13 03:48] LABS: COVID19 Sendout Not Detected (Not Detect)
== END ==
PROVIDERS: PCP Family Medicine; Visit Provider Physician Assistant
DX: Z11.59 Encounter for screening for other viral diseases (principal)
CPT/HCPCS: 87635

== ENCOUNTER 2019-11-15 11:56 | Outpatient (CLI) | payer MEDICARE, BC, SELFPAY ==
[2019-11-15] VITALS (8 sets, daily range): BP systolic 109–141; BP diastolic 67–92; PULSE 60–80; RESP 11–23; TEMP 36.4; O2SAT 94–97
--- NOTE | 2019-11-15 11:57 | DI.RAD.S_ITS ---
PROCEDURE: PAIN L INTERLAMINAR/CAUDAL INJ INDICATIONS: SPONDYLOSIS COMPARISON: None. FINDINGS: Fluoroscopic spot filming was performed to verify placement of spinal needles at the L4-L5 level(s), as labeled on the films. Appropriate location(s) of the needle tip(s) was confirmed by injection of iodinated contrast. Dictated by: Avinash Fair M.D. on 11/15/2019 at 14:03 Approved by: Avinash Fair M.D. on 11/15/2019 at 14:03
[2019-11-15] MEDS: MIDAZOLAM 5 MG/5 ML VIAL IV (13:15)
[2019-11-15] MEDS: BUPIVACAINE 0.25% (PF) VIAL 2 ML INJ (13:22)
[2019-11-15] MEDS: IOPAMIDOL 15 ML VIAL 3 ML INJ (13:22)
[2019-11-15] MEDS: BETAMETHASONE 30 MG/5 ML MDV 6 MG INJ (13:23)
[2019-11-15] MEDS: DEXAMETHASONE 10 MG/ML VIAL 20 MG INJ (13:23)
[2019-11-15] MEDS: fentaNYL 100 MCG/2 ML INJ 50 MCG IV (13:23)
--- NOTE | 2019-11-15 13:35 | P.PCN_ITS ---
Date/Time/Diagnoses Date of procedure: 11/15/19 Time of procedure: 13:35 Pre-procedure diagnosis: 1. HNP WITH RADICULAR FEATURES, 2. MULTILEVEL CENTRAL STENOSIS, Post-procedure diagnosis: same Procedure Notes Procedure: 1. FLUOROSCOPICALLY GUIDED CONTRAST CONTROLLED INTERLAMINAR EPIDURAL STEROID INJECTION -L4/5 Indications: [place] is referred by Dr. Blackwood for treatment of Bilateral Foraminal Stenosis R>L LE symptoms. Physician: Jonas Lundy Total Fluoroscopy time (seconds): 33 Total sedation minutes: 18 Complications: none Procedure in detail & Post-procedure care: FINDINGS Multilevel Central Spinal Stenosis with Nerve Root Compression DESCRIPTION OF PROCEDURE Fluoroscopically guided, contrast-controlled L4/5 translaminar epidural steroid injection. Following review of allergy and review of potential side effects and complications, including, but not necessarily limited to, infection, allergic reaction, local tissue breakdown, temporary as well as permanent nerve injury, paralysis, stroke and possible , the patient indicated that the patient understood and agreed to proceed. An informed consent document was signed by the patient, witnessed by a nurse, and placed in the patient's chart. Additionally, other treatment options including modalities, medications, and physical therapy were reviewed with the patient. After review of previous anaesthesic history and IV conscious sedation the patient was deemed safe to proceed with today?s procedure with IV conscious sedation as ASA class II designation. Safety time-out was performed to confirm patient ID, procedure to be performed and site of procedure. IV sedation was accomplished with a combination of 2mg of Versed and 50mcg of Fentanyl was administered by the RN after DO order, titrated to patient comfort during the course of the procedure while the patient remained responsive to all verbal commands In the prone position, following sterile prep and drape of the lumbar region, the L4/5 translaminar space was identified fluoroscopically. The skin was anesthetized via a 25-gauge, 1.5inch needle with 1% lidocaine solution. At this point, a 22-gauge short bevel spinal needle was atraumatically introduced and advanced under fluoroscopic guidance into the region of the L4/5 translaminar space. Depth was confirmed on lateral view. Radiological data, including multiple fluoroscopic views of the lumbar spine, reveal a spinal needle at the L4/5 translaminar space. Lateral views then show placement of the needle in the epidural space. Subsequent views show contrast material flowing superiorly and inferiorly in the epidural space. No vascular or intrathecal uptake is observed. At this point, using loss of resistance technique with saline and air, the epidural space was entered. This was confirmed following negative aspiration with injection of approximately 1.5cc of Isovue 200, showing excellent epidural flow without vascular or intrathecal uptake. At this point, 1cc of 1% lidocaine solution combined with 3cc or 20mg of dexamethasone and 6mg betamethasone was injected without incident. The patient tolerated the procedure well without signs or symptoms of comp lications prior to transfer to the recovery area continued monitoring without incident. The patient was then transferred to the recovery area where they were observed for an appropriate period of time after the injection. The patient reported a VAS score of 6 prior to the procedure and a post- procedure VAS of 0. POST OP INSTRUCTIONS The patient was provided a Pain Log to continue to record their response to the target-specific procedure prior to follow-up visit with their referring physician. Additionally, specific post-injection care instructions and a contact number to our office were provided if concerns arise regarding possible complications associated with the procedure are suspected.
== END 2019-11-15 13:58 | disposition home or self-care (01) ==
PROVIDERS: PCP Family Medicine; Referring Provider Family Medicine; Visit Provider Physical Medicine & Rehabilitation
DX: M51.16 Intervertebral disc disorders with radiculopathy, lumbar region (principal); M48.061 Spinal stenosis, lumbar region without neurogenic claudication
CPT/HCPCS: 62323; 99152; J0702; J1100; J2250; J3010

== ENCOUNTER → 2020-01-14 14:02 | Outpatient (CLI) | payer MEDICARE, BC, SELFPAY ==
[2020-01-15 06:50] LABS: COVID19 Sendout Not Detected (Not Detect)
== END ==
PROVIDERS: PCP Family Medicine; Visit Provider Physician Assistant
DX: Z01.812 Encounter for preprocedural laboratory examination (principal)
CPT/HCPCS: 87635

== ENCOUNTER 2020-01-17 10:53 | Outpatient (CLI) | payer MEDICARE, BC, SELFPAY ==
[2020-01-17] VITALS (12 sets, daily range): BP systolic 118–171; BP diastolic 63–89; PULSE 63–71; RESP 13–22; TEMP 36.4; O2SAT 92–97
--- NOTE | 2020-01-17 10:56 | DI.RAD.S_ITS ---
PROCEDURE: PAIN L/S MED/LAT N RFA INDICATIONS: SPONDYLOSIS COMPARISON: [facility], XA, PAIN L INTERLAMINAR/CAUDAL INJ, 11/15/2019, 13:20. FINDINGS: Fluoroscopic spot filming was performed to verify placement of spinal needles at the L2, L3, and L4 levels on both sides as labeled on the films. IMPRESSION: Intraprocedural examination within normal limits. Dictated by: Juan Luis Bradley M.D. on 01/17/2020 at 12:13 Approved by: Juan Luis Bradley M.D. on 01/17/2020 at 12:15
[2020-01-17] MEDS: fentaNYL 100 MCG/2 ML INJ 50 MCG IV (11:50)
[2020-01-17] MEDS: MIDAZOLAM 5 MG/5 ML VIAL IV (11:50)
[2020-01-17] MEDS: BUPIVACAINE 0.5% (PF) VIAL 5 ML INJ (11:56)
[2020-01-17] MEDS: LIDOCAINE 1% 20 ML 10 ML INJ (11:56)
--- NOTE | 2020-01-17 12:48 | P.PCN_ITS ---
Date/Time/Diagnoses Date of procedure: 01/17/20 Time of procedure: 12:49 Pre-procedure diagnosis: 1. RECALCITRANT FACET ARTHROPATHY Post-procedure diagnosis: same Procedure Notes Procedure: 1. BILATERAL L3, L4 AND L5 MEDIAL BRANCH RADIOFREQUENCY NEUROTOMY Indications: [place] is referred by Dr. Blackwood for treatment of facet arthropathy. Physician: Jonas Lundy Total Fluoroscopy time (seconds): 20 Total sedation minutes: 34 Complications: none Procedure in detail & Post-procedure care: DESCRIPTION OF PROCEDURE Bilateral L3, L4 and L5 medial branch radiofrequency neurotomy The patient is well known to this clinic having undergone previous facet injections with good but temporary relief. The patient has experienced appropriate, concordant relief with previous facet and median branch blocks but the patient's pain has been recalcitrant to further conservative measures. Therefore, based upon the patient's relief and persistent symptoms, the patient is considered an appropriate candidate for facet rhizotomy. All of the patient's questions regarding the risks versus benefits of the procedure, including, but not limited to, bleeding, infection, temporary as well as lasting nerve injury, paralysis, stroke, and , as well treatment alternatives were answered to satisfaction. After obtaining informed consent, denial of pertinent drug allergies, as well as being made aware of the potential risks of bleeding, infection, spinal cord trauma, paralysis, temporary and permanent nerve damage, seizure, stroke, and possible , the patient was brought to the fluoroscopy suite and positioned prone on the fluoroscopy table. The lumbar region was prepped with Betadine and covered with a fenestrated drape in the usual sterile fashion. Appropriate monitors applied including pulse oxim eter, pulse, and blood pressure for regular monitoring throughout the procedure. After review of previous anaesthesic history and IV conscious sedation the patient was deemed safe to proceed with today's procedure with IV conscious sedation as ASA class II designation. Safety time-out was performed to confirm patient ID, procedure to be performed and site of procedure. IV sedation was accomplished with a combination of 4mg of Versed and 50mcg of Fentanyl administered by the RN after DO order, titrated to patient comfort during the course of the procedure while the patient remained responsive to all verbal commands. After local infiltration using 1% lidocaine, under fluoroscopic guidance, a 10- cm RF insulated needle with a 10-mm active tip was positioned parallel to the junction of the right the superior articulating process where the L4 medial branch resides. Needle placement was confirmed with motor stimulation of .5v on the right which produced local stimulation without radicular component. The stimulation was then increased to 2v with, once again, only local multifidus stimulation without radicular component. The needle was then removed and the identical procedure was performed along the length of the right L3 medial branch with motor stimulation at .7v on the right. The identical procedure was once again performed along the length of the right L2 and medial branch with motor stimulation of .5v on the right. The medial branches were then anesthetised with 0.5% marcaine. This was then followed by two discreet lesions performed at 80 degrees Celsius for 90 seconds each. The identical procedures were repeated on the left. The patient tolerated the procedure well without signs or symptoms of complications prior to transfer to the recovery area continued monitoring without incident. The patient was then transferred to the recovery area where they were observed for an appropriate period of time after the injection. The patient reported a VAS score of 9 prior to the procedure and a post-procedure VAS of 0. POST OP INSTRUCTIONS The patient was provided a Pain Log to continue to record the patient's response to the target-specific procedure prior to the patient's follow-up visit with the referring physician. Additionally, specific post-injection care instructions and a contact number to our office were provided if concerns arise regarding possible complications associated with the procedure are suspected.
== END 2020-01-17 12:58 | disposition home or self-care (01) ==
LOC: RAD 10:55
PROVIDERS: PCP Family Medicine; Referring Provider Physical Medicine & Rehabilitation; Visit Provider Physical Medicine & Rehabilitation
DX: M47.816 Spondylosis without myelopathy or radiculopathy, lumbar region (principal)
CPT/HCPCS: 64635; 64636; 99152; 99153; J2250; J3010

== ENCOUNTER → 2020-05-12 15:22 | Outpatient (CLI) | payer MEDICARE, BC, SELFPAY ==
--- NOTE | 2020-05-12 | DI.RAD.S_ITS ---
PROCEDURE: XR LUMBAR SPINE MIN 4V INDICATIONS: SPINAL STENOSIS TECHNIQUE: 5 views of the lumbar spine were acquired, including bilateral oblique views. COMPARISON: [facility], CR, XR LUMBAR SPINE MIN 4V, 10/23/2019, 11:40. FINDINGS: Bones: 5 nonrib-bearing vertebrae are present. There is normal bony alignment. No vertebral body compression fractures. No suspicious bony lesions. Note is made of a [id number] degree of degenerative disc disease at the L1-L2 level where slight retrolisthesis grade 1 is present. Note is made of also mild disc height reduction at L2-3 and L3-4. Moderate such disc height reduction is present at L5-S1. Soft tissues: Overlying bowel gas pattern is normal. No suspicious soft tissue calcifications. Oblique images: No pars defects. IMPRESSION: Brtk-[id number] degenerative disc disease as discussed above most prominent at L5-S1 without evidence of associated compression fracture or significant subluxation. Dictated by: Geovani Garcia M.D. on 05/12/2020 at 16:25 Approved by: Geovani Garcia M.D. on 05/12/2020 at 16:26
--- NOTE | 2020-05-12 | DI.RAD.S_ITS ---
PROCEDURE: XR T AND L SPINE 4 TO 5 VIEWS INDICATIONS: SPINAL STENOSIS TECHNIQUE: 2 views acquired of the thoracolumbar spine. COMPARISON: None. FINDINGS: Bones: No acute fractures or dislocations. Visualized inferior ribs appear intact. No suspicious bony lesions. Soft tissues: No suspicious soft tissue calcifications. IMPRESSION: Along the thoracic spine there is mild degenerative disc disease, but no sign of fracture or subluxation. On the frontal projection there is no sign of paravertebral soft tissue swelling. A cardiac pacemaking device with dual chamber leads appears normal in positioning. Dictated by: Geovani Garcia M.D. on 05/12/2020 at 16:26 Approved by: Geovani Garcia M.D. on 05/12/2020 at 16:27
== END ==
PROVIDERS: PCP Family Medicine; Referring Provider Orthopaedic Surgery; Visit Provider Orthopaedic Surgery
DX: M48.061 Spinal stenosis, lumbar region without neurogenic claudication (principal); M51.34 Other intervertebral disc degeneration, thoracic region; M51.36 Other intervertebral disc degeneration, lumbar region; M51.37 Other intervertebral disc degeneration, lumbosacral region; Z95.0 Presence of cardiac pacemaker
CPT/HCPCS: 72083; 72110

== ENCOUNTER → 2020-09-10 13:08 | Outpatient (CLI) | payer MEDICARE, BC, SELFPAY ==
[2020-09-10 19:17] LABS: Alanine Aminotransferase 82 IU/L (<50); Albumin 3.9 g/dL (3.5-5.0); Albumin Globulin Ratio 1.3 (1.0-2.8); Alkaline Phosphatase 92 U/L (38-126); Aspartate Aminotransferase 66 IU/L (17-59); BUN Creatinine Ratio 37.6 (6-22); Bilirubin Total 0.5 mg/dL (0.2-1.3); Blood Urea Nitrogen 32 mg/dL (9-20); Calcium 9.2 mg/dL (8.4-10.2); Carbon Dioxide 24 mmol/L (22-32); Chloride 107 mmol/L (98-107); Estimated Glomerular Filt Rate > 60.0 mL/min (>60); Globulin 2.9 g/dL (1.7-4.1); Glucose 125 mg/dL (80-110); Potassium 4.5 mmol/L (3.4-5.1); Sodium 139 mmol/L (137-145); Total Protein 6.8 g/dL (6.3-8.2)
[2020-09-10 19:25] LABS: HEMOLYSIS 52 (0-50)
[2020-09-10 19:49] LABS: Add Manual Diff / Slide Review NO; Basophils Absolute Auto 0 /uL (0-100); Basophils Percent Auto 0.4 % (0-2); Eosinophils Absolute Auto 200 /uL (0-450); Eosinophils Percent Auto 2.6 % (2-4); Hematocrit 46.9 % (41-53); Hemoglobin 16.2 g/dL (13.5-17.5); Lymphocytes Absolute Auto 2200 /uL (1100-4500); Lymphocytes Percent Auto 27.1 % (25-40); Mean Corpuscular HGB Conc 34.5 % (30-36); Mean Corpuscular Hemoglobin 33.6 PG (26-34); Mean Corpuscular Volume 97.4 fL (80-100); Monocytes Absolute Auto 700 /uL (0-900); Monocytes Percent Auto 8.2 % (3-14); Neutrophils Absolute Auto 4900 /uL (1500-7000); Neutrophils Percent Auto 61.7 % (50-75); Platelet Count 166 X10^3/uL (150-400); Red Blood Cell Count 4.81 X10^6/uL (4.5-5.9); Red Cell Distribution Width 13.9 % (11.6-14.8)
== END ==
PROVIDERS: PCP Family Medicine; Visit Provider Physician Assistant
DX: Z01.818 Encounter for other preprocedural examination (principal)
CPT/HCPCS: 80053; 85025

== ENCOUNTER → 2020-11-17 09:19 | Outpatient (CLI) | payer MEDICARE, BC, SELFPAY ==
[2020-11-17 20:07] LABS: Add Manual Diff / Slide Review NO; Basophils Absolute Auto 0 /uL (0-100); Basophils Percent Auto 0.5 % (0-2); Eosinophils Absolute Auto 200 /uL (0-450); Eosinophils Percent Auto 2.9 % (2-4); Hemoglobin 16.6 g/dL (13.5-17.5); Lymphocytes Absolute Auto 1900 /uL (1100-4500); Lymphocytes Percent Auto 25.3 % (25-40); Mean Corpuscular HGB Conc 33.8 % (30-36); Mean Corpuscular Hemoglobin 33.2 PG (26-34); Mean Corpuscular Volume 98.2 fL (80-100); Monocytes Absolute Auto 800 /uL (0-900); Monocytes Percent Auto 10.1 % (3-14); Neutrophils Absolute Auto 4600 /uL (1500-7000); Neutrophils Percent Auto 61.2 % (50-75); Platelet Count 161 X10^3/uL (150-400); Red Blood Cell Count 4.99 X10^6/uL (4.5-5.9); Red Cell Distribution Width 13.3 % (11.6-14.8); White Blood Cell Count 7.5 X10^3/uL (4.5-11.0)
[2020-11-17 20:20] LABS: Alanine Aminotransferase 49 IU/L (<50); Albumin 4.1 g/dL (3.5-5.0); Albumin Globulin Ratio 1.5 (1.0-2.8); Alkaline Phosphatase 76 U/L (38-126); Aspartate Aminotransferase 50 IU/L (17-59); BUN Creatinine Ratio 32.9 (6-22); Bilirubin Total 0.6 mg/dL (0.2-1.3); Blood Urea Nitrogen 28 mg/dL (9-20); Calcium 9.4 mg/dL (8.4-10.2); Carbon Dioxide 26 mmol/L (22-32); Chloride 103 mmol/L (98-107); Estimated Glomerular Filt Rate > 60.0 mL/min (>60); Globulin 2.7 g/dL (1.7-4.1); Glucose 130 mg/dL (80-110); HEMOLYSIS < 15 (0-50); Potassium 4.7 mmol/L (3.4-5.1); Sodium 137 mmol/L (137-145); Total Protein 6.8 g/dL (6.3-8.2)
[2020-11-19 15:31] LABS: Hemoglobin A1C% w Est Avg Glu 5.7 % (4.0-6.0)
== END ==
PROVIDERS: PCP Physician Assistant; Visit Provider Physician Assistant
DX: Z01.818 Encounter for other preprocedural examination (principal); M96.1 Postlaminectomy syndrome, not elsewhere classified; R73.01 Impaired fasting glucose
CPT/HCPCS: 80053; 83036; 85025

== ENCOUNTER → 2021-03-04 12:32 | Outpatient (CLI) | payer MEDICARE, BC, SELFPAY ==
[2021-03-04 20:11] LABS: Alanine Aminotransferase 22 IU/L (<50); Albumin 3.8 g/dL (3.5-5.0); Albumin Globulin Ratio 1.4 (1.0-2.8); Alkaline Phosphatase 62 U/L (38-126); Aspartate Aminotransferase 31 IU/L (17-59); Bilirubin Total 0.5 mg/dL (0.2-1.3); Blood Urea Nitrogen 20 mg/dL (9-20); Calcium 9.2 mg/dL (8.4-10.2); Carbon Dioxide 26 mmol/L (22-32); Chloride 105 mmol/L (98-107); Estimated Glomerular Filt Rate > 60.0 mL/min (>60); Globulin 2.8 g/dL (1.7-4.1); Glucose 171 mg/dL (80-110); HEMOLYSIS < 15 (0-50); Potassium 3.9 mmol/L (3.4-5.1); Sodium 140 mmol/L (137-145); Total Protein 6.6 g/dL (6.3-8.2)
== END ==
PROVIDERS: PCP Physician Assistant; Visit Provider Physician Assistant
DX: Z79.899 Other long term (current) drug therapy (principal)
CPT/HCPCS: 80053

== ENCOUNTER → 2022-05-11 09:32 | Outpatient (CLI) | payer MEDICARE, BC, SELFPAY ==
[2022-05-11 19:21] LABS: Alanine Aminotransferase 49 IU/L (<50); Albumin 4.4 g/dL (3.5-5.0); Albumin Globulin Ratio 1.5 (1.0-2.8); Alkaline Phosphatase 83 U/L (38-126); Aspartate Aminotransferase 45 IU/L (17-59); Bilirubin Total 0.6 mg/dL (0.2-1.3); Blood Urea Nitrogen 25 mg/dL (9-20); Calcium 8.9 mg/dL (8.4-10.2); Carbon Dioxide 28 mmol/L (22-32); Chloride 99 mmol/L (98-107); Cholesterol 223 mg/dL (140-199); Estimated Glomerular Filt Rate > 60 mL/min (>60); Glucose 116 mg/dL (80-110); HDL Cholesterol 31 mg/dL (40-60); HEMOLYSIS 16 (0-50); LDL Cholesterol Calculated 141 mg/dL (<100); Potassium 4.8 mmol/L (3.4-5.1); Sodium 137 mmol/L (137-145); Total Protein 7.4 g/dL (6.3-8.2); Triglycerides 256 mg/dL (35-150)
[2022-05-11 19:22] LABS: Add Manual Diff / Slide Review NO; Basophils Absolute Auto 100 /uL (0-100); Basophils Percent Auto 0.6 % (0-2); Eosinophils Absolute Auto 200 /uL (0-450); Eosinophils Percent Auto 2.2 % (2-4); Hematocrit 49.7 % (41-53); Hemoglobin 17.2 g/dL (13.5-17.5); Lymphocytes Absolute Auto 1700 /uL (1100-4500); Lymphocytes Percent Auto 21.4 % (25-40); Mean Corpuscular HGB Conc 34.5 % (30-36); Mean Corpuscular Hemoglobin 33.3 PG (26-34); Mean Corpuscular Volume 96.6 fL (80-100); Monocytes Absolute Auto 600 /uL (0-900); Monocytes Percent Auto 7.3 % (3-14); Neutrophils Absolute Auto 5500 /uL (1500-7000); Neutrophils Percent Auto 68.5 % (50-75); Platelet Count 186 X10^3/uL (150-400); Red Blood Cell Count 5.15 X10^6/uL (4.5-5.9); Red Cell Distribution Width 13.6 % (11.6-14.8); White Blood Cell Count 8.1 X10^3/uL (4.5-11.0)
[2022-05-11 19:51] LABS: Prostate Specific Antigen Scrn 1.18 ng/mL (0.1-4.0)
== END ==
PROVIDERS: PCP Family Medicine; Visit Provider Family Medicine
DX: I10 Essential (primary) hypertension (principal); M1A.00X0 Idiopathic chronic gout, unspecified site, without tophus (tophi); Z12.5 Encounter for screening for malignant neoplasm of prostate; R73.9 Hyperglycemia, unspecified
CPT/HCPCS: 80053; 80061; 85025; G0103

== ENCOUNTER → 2022-07-21 11:45 | Outpatient (CLI) | payer MEDICARE, BC, SELFPAY ==
[2022-07-21 19:51] LABS: Cholesterol 100 mg/dL (140-199); HDL Cholesterol 29 mg/dL (40-60); LDL Cholesterol Calculated 43 mg/dL (<100); Triglycerides 139 mg/dL (35-150); Uric Acid 5.2 mg/dL (3.5-8.5)
[2022-07-23 06:08] LABS: x Labcorp Estim. Avg Glu (eAG) 126 mg/dL (.)
== END ==
PROVIDERS: PCP Family Medicine; Visit Provider Family Medicine
DX: I10 Essential (primary) hypertension; E78.2 Mixed hyperlipidemia; R73.9 Hyperglycemia, unspecified; M10.9 Gout, unspecified
CPT/HCPCS: 80061; 83036; 84550

== ENCOUNTER → 2023-04-05 14:31 | Outpatient (CLI) | payer MEDICARE, BC, SELFPAY | PROVIDERS: PCP Family Medicine; Visit Provider Physician Assistant | DX: J39.2 Other diseases of pharynx (principal) | CPT/HCPCS: 87070 ==

== ENCOUNTER → 2023-04-25 10:23 | Outpatient (CLI) | payer MEDICARE, BC, SELFPAY ==
--- NOTE | 2023-04-25 10:25 | DI.CT.S_ITS ---
PROCEDURE: CT CHEST W CON INDICATIONS: abnormal chest xray 04/05/23 and 04/19/23 TECHNIQUE: After the administration of intravenous contrast, 5 mm thick sections acquired from the pulmonary apices to the posterior costophrenic angles. 1 mm axial lung, 5 mm thick coronal and sagittal reformats and 7 mm axial MIP were acquired. For radiation dose reduction, the following was used: automated exposure control, adjustment of mA and/or kV according to patient size. COMPARISON: [facility]), CR, XR CHEST 2V, 04/05/2023, 14:36. [facility] ([place]), CR, XR CHEST 2V, 04/19/2023, 11:46. FINDINGS: Image quality: Diagnostic. Lower Neck: No enlarged lymph nodes. Thyroid: No thyroid nodules which require sonographic follow up, per consensus guidelines. Axillae: No enlarged lymph nodes. Chest Wall: Unremarkable. Bones: Degenerative and postsurgical changes in thoracic and lumbar spine. Lungs and Pleura: Bibasilar scars and atelectasis, left greater than right. No pneumothorax or pleural effusions. No consolidation. There is a 2 mm ground-glass nodule in the right upper lobe (series 3 image 155). Heart: Heart size is normal. No pericardial effusion. There is a cardiac pacemaker. Moderate coronary artery calcification. Thoracic Vessels: The aorta and pulmonary arteries demonstrate normal size. Mediastinum and Lexy: No enlarged lymph nodes. Esophagus: No wall thickening. Small hiatal hernia. Upper Abdomen: There is a calcified nodule in liver in the posterior hepatic dome, probably an old granuloma Visualized upper abdomen solid organs and bowel loops appear normal. IMPRESSION: 1. Bibasilar scars and atelectasis, left greater than the right. 2. A 2 mm ground-glass nodule in the right upper lobe. Please see enclosed follow-up recommendation. 3. Moderate coronary artery calcification consistent with atherosclerosis. Fleischner Society criteria for SUB-SOLID lung nodule followup. Solitary pure ground-glass nodules5 mm or lessNo followup needed. >5 mm3 mo follow-up CT to confirm persistence. Then annual CT for 3 years. Part-solid nodules3 mo follow-up CT to confirm persistence. If persistent with solid component <5 mm, annual CT for at least 3 years. If solid component is 5 mm or more, biopsy or surgical resection. Consider PET-CT for lesions > 10 mm. Multiple sub-solid nodulesPure ground glass nodules [address] at 2 and 4 years. Pure ground glass nodules >5 mm without dominant lesion. [address] to confirm persistence, then annual followup CT for at least 3 years. Dominant nodule(s) with part-solid or solid component. [address] to confirm persistence. If persistent, consider biopsy or surgical resection, rishi if lesions have >5 mm solid component. Dictated by: Karlie Henriquez M.D. on 04/26/2023 at 7:41 Approved by: Karlie Henriquez M.D. on 04/26/2023 at 7:48
[2023-04-25 10:50] LABS: Estimated Glomerular Filt Rate > 60 mL/min (>60)
== END ==
PROVIDERS: Radiology Diagnostic Radiology; PCP Family Medicine; Referring Provider Physician Assistant; Visit Provider Physician Assistant
DX: J06.9 Acute upper respiratory infection, unspecified (principal); R93.89 Abnormal findings on diagnostic imaging of other specified body structures; R91.1 Solitary pulmonary nodule; J98.4 Other disorders of lung; J98.11 Atelectasis; I25.10 Atherosclerotic heart disease of native coronary artery without angina pectoris; Z95.0 Presence of cardiac pacemaker
CPT/HCPCS: 36415; 71260; 82565; Q9967

== ENCOUNTER → 2023-06-16 09:16 | Outpatient (CLI) | payer MEDICARE, BC, SELFPAY ==
[2023-06-16 19:13] LABS: Blood Urea Nitrogen 25 mg/dL (9-20); Calcium 9.4 mg/dL (8.4-10.2); Carbon Dioxide 28 mmol/L (22-32); Chloride 104 mmol/L (98-107); Cholesterol 90 mg/dL (140-199); Estimated Glomerular Filt Rate > 60 mL/min (>60); Glucose 141 mg/dL (80-110); HDL Cholesterol 32 mg/dL (40-60); HEMOLYSIS 17 (0-50); LDL Cholesterol Calculated 36 mg/dL (<100); Potassium 4.3 mmol/L (3.4-5.1); Sodium 138 mmol/L (137-145); Triglycerides 110 mg/dL (35-150)
[2023-06-16 19:18] LABS: Add Manual Diff / Slide Review YES; Hematocrit 50.9 % (41-53); Hemoglobin 17.6 g/dL (13.5-17.5); Mean Corpuscular HGB Conc 34.6 % (30-36); Mean Corpuscular Hemoglobin 33.8 PG (26-34); Mean Corpuscular Volume 97.5 fL (80-100); Platelet Count 181 X10^3/uL (150-400); Red Blood Cell Count 5.21 X10^6/uL (4.5-5.9); Red Cell Distribution Width 13.8 % (11.6-14.8); White Blood Cell Count 8.1 X10^3/uL (4.5-11.0)
[2023-06-16 19:19] LABS: Hemoglobin A1C% w Est Avg Glu 6.2 % (4.0-6.0)
[2023-06-16 19:35] LABS: Prostate Specific Antigen Scrn 1.14 ng/mL (0.1-4.0)
[2023-06-16 20:13] LABS: Neutrophils Absolute Manual 5508 /uL (3000-5900); RBC Morphology Normal Morphology; Total Cells Counted 100
== END ==
PROVIDERS: PCP Family Medicine; Visit Provider Family Medicine
DX: R73.9 Hyperglycemia, unspecified (principal); R73.03 Prediabetes; E78.2 Mixed hyperlipidemia; Z12.5 Encounter for screening for malignant neoplasm of prostate; M10.9 Gout, unspecified; I10 Essential (primary) hypertension
CPT/HCPCS: 80048; 80061; 83036; 85007; 85025; G0103

== ENCOUNTER → 2024-07-17 09:30 | Outpatient (CLI) | payer MEDICARE, BC, SELFPAY ==
[2024-07-17 18:44] LABS: Add Manual Diff / Slide Review NO; Basophils Absolute Auto 0 /uL (0-100); Basophils Percent Auto 0.3 % (0-2); Eosinophils Absolute Auto 0 /uL (0-450); Eosinophils Percent Auto 0.6 % (2-4); Hematocrit 49.7 % (41-53); Hemoglobin 17.1 g/dL (13.5-17.5); Lymphocytes Absolute Auto 1600 /uL (1100-4500); Lymphocytes Percent Auto 20.3 % (25-40); Mean Corpuscular HGB Conc 34.4 % (30-36); Mean Corpuscular Hemoglobin 35.2 PG (26-34); Mean Corpuscular Volume 102.3 fL (80-100); Monocytes Absolute Auto 700 /uL (0-900); Monocytes Percent Auto 9.3 % (3-14); Neutrophils Absolute Auto 5300 /uL (1500-7000); Neutrophils Percent Auto 69.5 % (50-75); Platelet Count 154 X10^3/uL (150-400); Red Blood Cell Count 4.86 X10^6/uL (4.5-5.9); Red Cell Distribution Width 13.7 % (11.6-14.8); White Blood Cell Count 7.7 X10^3/uL (4.5-11.0)
[2024-07-17 19:04] LABS: BUN Creatinine Ratio 23.1 (6-22); Blood Urea Nitrogen 27 mg/dL (9-20); Calcium 9.1 mg/dL (8.4-10.2); Carbon Dioxide 26 mmol/L (22-32); Chloride 102 mmol/L (98-107); Cholesterol 108 mg/dL (140-199); Estimated Glomerular Filt Rate > 60 mL/min (>60); Glucose 129 mg/dL (70-99); HDL Cholesterol 47 mg/dL (40-60); HEMOLYSIS 19 (0-50); LDL Cholesterol Calculated 41 mg/dL (<100); Potassium 4.4 mmol/L (3.4-5.1); Sodium 137 mmol/L (137-145); Triglycerides 100 mg/dL (35-150)
[2024-07-17 19:08] LABS: Hemoglobin A1C% w Est Avg Glu 5.4 % (4.0-6.0)
[2024-07-17 19:51] LABS: Creatinine Urine Random 251.97 mg/dL
[2024-07-17 19:57] LABS: Microalbumin Urine Random 6.2 mg/dL (0-1.6)
== END ==
PROVIDERS: PCP Family Medicine; Visit Provider Family Medicine
DX: M1A.00X0 Idiopathic chronic gout, unspecified site, without tophus (tophi) (principal); E78.2 Mixed hyperlipidemia; R73.03 Prediabetes; I10 Essential (primary) hypertension
CPT/HCPCS: 80048; 80061; 82043; 82570; 83036; 85025